=== PATIENT | female | born 1985 | race Caucasian/White ===

== ENCOUNTER 2020-03-11 00:25 | Inpatient (IN) | payer OTHER ==
[~2020-03-11] VITALS: Ht 167.6 cm; Wt 101.8 kg
[2020-03-11] VITALS (20 sets, daily range): BP systolic 100–133; BP diastolic 55–76; PULSE 56–83; TEMP 97.4–98.7
[~2020-03-11 00:25] MED LIST: ZITHROMAX Z PA250 MG PO
--- NOTE | 2020-03-11 00:35 | NUR ---
Shabnam FINISHER PLATE into room for epidural. To edge of bed for epidural placement. See anesthesia record for placement information.
[2020-03-11 01:34] LABS: BASO % 0.1 % (0.0-2.0); EOS # 0.1 (0.0-0.7); EOS % 0.7 % (0-4.0); GRAN # 5.1 (1.4-6.5); GRAN % 61.1 % (42.2-75.2); HEMATOCRIT 34.7 % (37.0-47.0); HEMOGLOBIN 12.3 g/dl (12.5-16.0); LYMPH # 2.7 (1.2-3.4); LYMPH % 32.5 % (20.0-51.0); MEAN CELL VOLUME 88 fl (80.0-100.0); MEAN CORPUSCULAR HEMOGLOBIN 31 pg (27.0-31.0); MEAN CORPUSCULAR HGB CONC 35 g/dl (33.0-37.0); MEAN PLATELET VOLUME 11.3 fl (7.4-10.4); MONO # 0.4 (0.1-0.6); MONO % 5.2 % (1.7-9.3); PLATELET COUNT 219 K/mm3 (130-400); RED BLOOD COUNT 3.94 M/mm3 (4.10-5.30); REDCELL DISTRIBUTION WIDTH-CV 14.4 % (11.5-14.5)
--- NOTE | 2020-03-11 02:35 | NUR ---
FHT's with repetive early decelerations, last one to 70's-90's, returns to baseline with end of contraction. SVE complete.
--- NOTE | 2020-03-11 03:13 | NUR ---
Placenta delivers spont and intact with 3 vessell cord. 30u Pitocin in 500cc LR IV started @ bolus rate.
--- NOTE | 2020-03-11 06:42 | NUR ---
REPORT RECEIVED FROM OFF GOING RN DONNIE Brandt. CARE TAKEN OVER BY THIS RN.
--- NOTE | 2020-03-12 06:39 | NUR ---
REPORT RECEIVED FROM OFF GOING RN, DONNIE Brandt. CARE TAKEN OVER BY THIS RN.
[2020-03-12 08:06] VITALS: BP 126/54; PULSE 74; TEMP 98.1
--- NOTE | 2020-03-12 09:16 | NUR ---
Initial visit; Parents thanked Psychology Instructor for offering congratulations and God's blessings for the of their son. Psychology Instructor thanked family for choosing [facility].
[2020-03-12] MEDS ORDERED: IBU600 MG PO (09:24)
== END 2020-03-12 13:15 | disposition home or self-care (01) | DRG 768 ==
LOC: LDRO 00:25 → OB 01:12 → LDR 01:12 → OB 06:00
PROVIDERS: Obstetrics & Gynecology; ADMIT Obstetrics & Gynecology
PROC: 10E0XZZ Delivery of Products of Conception, External Approach (ICD-10-PCS; principal; 2020-03-11)
PROC: 0UQJXZZ Repair Clitoris, External Approach (ICD-10-PCS; 2020-03-11)
DX: O71.89 Other specified obstetric trauma (principal); Z37.0 Single live birth; Z3A.38 38 weeks gestation of pregnancy
CPT/HCPCS: J2590; J2795; J7120

== ENCOUNTER 2021-08-23 13:00 | Inpatient (IN) | payer MEDICAID ==
[2021-08-23] VITALS (15 sets, daily range): BP systolic 114–147; BP diastolic 57–95; PULSE 69–104; TEMP 97.5–97.9
[~2021-08-23] VITALS: Ht 167.6 cm; Wt 100.0 kg
[~2021-08-23 13:00] MED LIST changes: +IBU600 MG PO
--- NOTE | 2021-08-23 13:20 | NUR ---
1320-G4L3 39.[address] Saez ambulatory to LR 3 with complaint of contractions that started in the night and are becoming increasingly painful and closer together. Paitent breathing through contractions. Placed on EFM. VSS SVE 7/100/0 per RN. CARI Melvin. Updated Dr. Magdaleno, orders recieved to admit patient. JESSICA Licea notified of patients desire for an epidural. 1345-IV to left wrist. blood colected and sent to lab per orders, LR infusing. 1400-JESSICA Licea to patient room. Patient sitting upright for epidural placement. Difficulty tracing contractions and FHR due to maternal positioning. 1409-Test dose administered by JESSICA Licea Patient toleated procedure well.
[2021-08-23] MEDS ORDERED: PRENATAL (13:34)
[2021-08-23 14:11] LABS: BASO % 0.1 % (0.0-2.0); EOS # 0.1 K/mm3 (0.0-0.7); EOS % 0.5 % (0.0-4.0); GRAN # 6.3 K/mm3 (1.4-6.5); GRAN % 67.2 % (42.2-75.2); HEMOGLOBIN 12.7 g/dl (12.5-16.0); LYMPH # 2.6 K/mm3 (1.2-3.4); LYMPH % 27.5 % (20.0-51.0); MEAN CELL VOLUME 86 fl (80.0-100.0); MEAN CORPUSCULAR HEMOGLOBIN 31 pg (27-31); MEAN CORPUSCULAR HGB CONC 36 g/dl (33.0-37.0); MEAN PLATELET VOLUME 10.7 fl (7.4-10.4); MONO # 0.4 K/mm3 (0.1-0.6); MONO % 4.4 % (1.7-9.3); PLATELET COUNT 225 K/mm3 (130-400); RED BLOOD COUNT 4.17 M/mm3 (4.10-5.30)
[2021-08-23 14:13] LABS: HEMATOCRIT 35.8 % (37.0-47.0)
--- NOTE | 2021-08-23 16:01 | NUR ---
1425-Patient feeling pushy, SROM clear fluid. SVE 9/100/0. Dr. Magdaleno notified to come to hospital. 1440-Dr. Magdaleno in room. Set up for delivery 1443-patient begins pushing with contraction. Spontaneous delivery of head immediately followed by body. Dr. Magdaleno places bulb suctions nares and mouth of viable male infant and places on mothers chest. Cord clamped x2 and cut by ADAM Melvin. Care of infant assumed by ADAM Davey Apgars 8/9/9. 1447-Spontaneous delivery of intact placenta by Dr. Magdaleno. Fundal massage firm. Lochia WNL. EBL 200ml. Pernium found to be intact by Dr. Magdaleno. Pitocin bolus started per order. Lelia care provided. Ice to perineum. Updated patient on plan of care and safety.
--- NOTE | 2021-08-23 16:30 | NUR ---
1630-Patient up to bathroom, ambulates with steady gait. Easily voids 350ml clear yellow urine. Assisted with rosalino care and gown change. Oriented to room 207.
[2021-08-24 05:30] VITALS: BP 109/70; PULSE 58; TEMP 98.3
[2021-08-24 07:22] VITALS: BP 124/78; PULSE 80; TEMP 98.4
[2021-08-24] MEDS ORDERED: IBU800 M1 PO (08:45)
--- NOTE | 2021-08-24 09:54 | NUR ---
Initial visit; Parents thanked Help Desk Rep for offering congratulations and God's blessings for the of their son. Help Desk Rep thanked family for choosing [facility].
== END 2021-08-24 15:55 | disposition home or self-care (01) | DRG 807 ==
LOC: LDRO 13:00 → LDR 13:20 → OB 13:20
PROVIDERS: Obstetrics & Gynecology; ADMIT Obstetrics & Gynecology
PROC: 10E0XZZ Delivery of Products of Conception, External Approach (ICD-10-PCS; principal; 2021-08-23)
DX: O80 Encounter for full-term uncomplicated delivery (principal); Z37.0 Single live birth; O69.81X0 Labor and delivery complicated by cord around neck, without compression, not applicable or unspecified; Z3A.39 39 weeks gestation of pregnancy
CPT/HCPCS: J2590; J2795; J7120